=== PATIENT | female | born 1960 | race Hispanic/Latino ===

== ENCOUNTER → 2022-02-16 | Outpatient (CLI) | payer OTHER | END | disposition home or self-care (01) | LOC: RAH 13:26 | PROVIDERS: ATTEND Internal Medicine Cardiovascular Disease | DX: Z13.6 Encounter for screening for cardiovascular disorders (principal); R93.1 Abnormal findings on diagnostic imaging of heart and coronary circulation | CPT/HCPCS: 75571 ==